=== PATIENT | female | born 1995 | race Caucasian/White ===

== ENCOUNTER → 2019-09-29 | Outpatient (CLI) | payer OTHER ==
[~2019-09-29] MED LIST: NORCO 325 MG-51 TAB PO; SPRINTEC 35 MCG1 TAB PO; ZOFRAN 4MG T4 MG/TAB PO
== END ==
LOC: ZCOL.LAB 15:19
DX: R05 Cough (principal); R06.02 Shortness of breath; R50.9 Fever, unspecified; Z20.828 Contact with and (suspected) exposure to other viral communicable diseases